=== PATIENT | female | born 1960 | race African-American/Black ===

== ENCOUNTER 2018-06-02 08:22 | Emergency (ER) | payer MEDICARE, OTHER ==
[2018-06-02 09:46] LABS: #Basophils 0.1 thou/uL (0.0-0.2); #Eosinphils 0.1 thou/uL (0.0-0.7); #Lymphocytes 1.6 thou/uL (1.20-3.40); #Monocytes 0.3 thou/uL (0.11-0.59); #Neutrophils 3.4 thou/uL (1.40-6.50); %Basophils 1.9 % (0.0-1.0); %Eosinophils 1.6 % (0.0-10.0); %Lymphocytes 29.7 % (21.0-51.0); %Monocytes 5.1 % (0.0-10.0); %Neutrophils 61.6 % (42.0-75.0); Hemoglobin 14.2 g/dL (12.0-16.0); Mean Corpuscular Hemoglobin 33.3 pg (27.0-31.0); Mean Platelet Volume 7.3 fL (7.4-10.4); Platelet Count 260 thou/uL (130-400); RBC Distribution Width 12.4 % (11.5-14.5); Red Blood Cell (RBC) Count 4.27 mill/uL (4.20-5.40); White Blood Cell (WBC) Count 5.5 thou/uL (4.8-10.8)
[2018-06-02 10:02] LABS: Anion Gap 12 mmol/L (10-20); BUN (Urea Nitrogen) 8 mg/dL (9.8-20.1); Calc. Creatinine Clearance 0 mL/min (70-130); Carbon Dioxide 25 mmol/L (22-29); Chloride 103 mmol/L (98-107); Estimated GFR-MDRD 86; Glucose 109 mg/dL (70-105); Potassium 3.1 mmol/L (3.5-5.1); Sodium 137 mmol/L (136-145)
[2018-06-02 10:08] LABS: CKMB 0.6 ng/mL (0-6.6); Troponin I Less than 0.010 ng/mL (< 0.028)
--- NOTE | 2018-06-02 10:23 | RAD ---
CHEST 1 VIEW: Date: 06/02/18 HISTORY: Chest pain. COMPARISON: Chest radiograph from 2009. FINDINGS: Lungs are clear. No pneumothorax or effusion. Cardiac silhouette and mediastinal contours within norm al limits. IMPRESSION: No acute intrathoracic abnormality. POS: KIMBERLEYH
[2018-06-02 11:11] LABS: Troponin I Less than 0.010 ng/mL (< 0.028)
== END 2018-06-02 11:40 | disposition home or self-care (01) ==
LOC: ERS 08:22
DX: R07.9 Chest pain, unspecified (principal); E11.9 Type 2 diabetes mellitus without complications; I10 Essential (primary) hypertension; F17.210 Nicotine dependence, cigarettes, uncomplicated; Z79.899 Other long term (current) drug therapy
CPT/HCPCS: 36415; 71045; 80048; 82553; 84484; 85025; 93005; 99406

== ENCOUNTER 2019-01-12 09:01 | Emergency (ER) | payer MEDICARE, MEDICAID ==
[2019-01-12] MEDS ORDERED: Acetaminophen 325 MG TAB ONE (09:31)
--- NOTE | 2019-01-12 09:34 | RAD ---
EXAM: XR Ankle Lt 3 View STANDARD PROVIDED CLINICAL HISTORY: Pain FINDINGS: There is no evidence for fracture or other acute osseous abnormality. Alignment appears anatomic. Barbara nt spaces appear preserved. IMPRESSION: No evidence for an acute osseous abnormality. If there is persistent clinical concern, conservative m anagement and follow-up imaging advised.
--- NOTE | 2019-01-12 09:34 | RAD ---
EXAM: XR Foot Lt 3 View STANDARD PROVIDED CLINICAL HISTORY: Pain FINDINGS: There is no evidence for fracture or other acute osseous abnormality. Alignment appears anatomic. Barbara nt spaces appear preserved. Posterior and plantar calcaneal enthesophyte formation. IMPRESSION: No evidence for an acute osseous abnormality. If there is persistent clinical concern, conservative m anagement and follow-up imaging advised.
== END 2019-01-12 10:12 | disposition home or self-care (01) ==
LOC: ERS 09:01
DX: M25.572 Pain in left ankle and joints of left foot (principal); I10 Essential (primary) hypertension; F20.9 Schizophrenia, unspecified; F17.210 Nicotine dependence, cigarettes, uncomplicated; Z79.899 Other long term (current) drug therapy

== ENCOUNTER 2019-02-12 19:05 | Emergency (ER) | payer MEDICARE, MEDICAID | END 2019-02-12 20:19 | disposition left against medical advice (07) | LOC: ERS 19:05 | DX: Z53.21 Procedure and treatment not carried out due to patient leaving prior to being seen by health care provider (principal) ==

== ENCOUNTER 2019-02-17 06:15 | Inpatient (IN) | payer MEDICARE, MEDICAID ==
[2019-02-17] MEDS ORDERED: EPINEPHrine 1 MG/ML AMP ONE ×3 (06:34→10:17)
[2019-02-17] MEDS ORDERED: Lidocaine 1% w/Epinephrine 1:100K 20 ML VIAL ONE (06:39)
[2019-02-17] MEDS ORDERED: Norepinephrine 8 MG/250 ML IVPB SCH (06:45)
[2019-02-17] MEDS ORDERED: Norepinephrine 8 MG/0.9% NS 250 ML IVPB SCH (06:45)
[2019-02-17] MEDS ORDERED: Piperacillin/Tazobactam 3.375 GM VIAL ONE ×2 (07:51→08:19)
[2019-02-17] MEDS ORDERED: Atropine Sulfate 1 mg/10 ml Syringe ONE (07:59)
[2019-02-17 08:19] LABS: INR-International Normal Ratio 1.3; Prothrombin Time 16.1 SEC (12.0-14.7)
[2019-02-17] MEDS ORDERED: Calcium Chloride 1 GM/10 ML Abboject SYRINGE ONE (08:25)
[2019-02-17 08:28] LABS: D-Dimer Test 11.26 *mcg/mL (0.27-0.43)
[2019-02-17] MEDS ORDERED: Potassium Chloride 40 MEQ in Sodium Chloride 0.9% 250 ML 250 ML IVPB SCH (08:30)
[2019-02-17 08:33] LABS: #Basophils 0.1 thou/uL (0.0-0.2); #Eosinphils 0.1 thou/uL (0.0-0.7); #Lymphocytes 3.2 thou/uL (1.20-3.40); #Monocytes 0.4 thou/uL (0.11-0.59); %Basophils 0.5 % (0.0-1.0); %Eosinophils 0.5 % (0.0-10.0); %Lymphocytes 18.2 % (21.0-51.0); %Neutrophils 78.8 % (42.0-75.0); Hemoglobin 15.2 g/dL (12.0-16.0); Mean Corpuscular HGB CONC 32.7 g/dL (32.0-36.0); Mean Corpuscular Hemoglobin 31.4 pg (27.0-31.0); Mean Platelet Volume 8.3 fL (7.4-10.4); Platelet Count 261 thou/uL (130-400); RBC Distribution Width 12.5 % (11.5-14.5); Red Blood Cell (RBC) Count 4.86 mill/uL (4.20-5.40); White Blood Cell (WBC) Count 17.7 thou/uL (4.8-10.8)
[2019-02-17 08:34] LABS: ALT (SGPT) 7 U/L (8-55); AST (SGOT) 11 U/L (5-34); Albumin 2.6 g/dL (3.5-5.0); Alkaline Phosphatase 58 U/L (40-150); Anion Gap 12 mmol/L (10-20); BUN (Urea Nitrogen) 16 mg/dL (9.8-20.1); Bilirubin, Total 0.3 mg/dL (0.2-1.2); CK (CPK) 122 U/L (29-168); Calc. Creatinine Clearance 0 mL/min (70-130); Carbon Dioxide 21 mmol/L (22-29); Chloride 105 mmol/L (98-107); Estimated GFR-MDRD 56; Globulin 2.1 g/dL (2.4-3.5); Glucose 318 mg/dL (70-105); Magnesium 1.4 mg/dL (1.6-2.6); Protein, Total 4.7 g/dL (6.0-8.3); Sodium 135 mmol/L (136-145)
[2019-02-17 08:35] LABS: Acetaminophen Less than 6.0 mcg/mL (10.0-30.0); Alcohol Less than 10 mg/dL (Less than 10); Salicylate Less than 8.0 mg/dL (15.0-30.0)
[2019-02-17 08:41] LABS: Potassium 2.6 mmol/L (3.5-5.1)
[2019-02-17 08:52] LABS: Bacteria/HPF 4+ HPF (None Seen); Bilirubin Negative (Negative); Blood, Urine Negative (Negative); Clarity Clear (Clear); Glucose, Urine (Dipstick) Normal (Negative); Leukocyte Negative Leu/uL (Negative); Nitrite 2+ (Negative); Protein, Urine (Dipstick) Negative (Neg-Trace); RBC/HPF 0-3 HPF (0-3); Squamous Epithelial 0-3 HPF (0-3); Urobilinogen Normal mg/dL (Less than 2); WBC/HPF 0-3 HPF (0-3)
[2019-02-17 08:54] LABS: Amphetamine Not Detected (NotDetected); Barbiturates Screen Not Detected (NotDetected); Benzodiazepine Screen Not Detected (NotDetected); Cocaine Metabolite Screen Not Detected (NotDetected); Medtox Control Line Valid? VALID (VALID); Medtox Reader # READER 4; Methadone Not Detected (NotDetected); Methamphetamine Not Detected (NotDetected); Opiate Screen Not Detected (NotDetected); Oxycodone Screen Not Detected (NotDetected); Phencyclidine (PCP) Not Detected (NotDetected); THC/Cannabinoid Screen Not Detected (NotDetected); Tricyclic Screen Not Detected (NotDetected)
[2019-02-17] MEDS ORDERED: Heparin 25,000 units/D5W 500 ML ONE (08:56)
[2019-02-17] MEDS ORDERED: Heparin 1,000 UNITS/ML VIAL ONE ×2 (08:56)
[2019-02-17 08:57] LABS: CKMB 1.4 ng/mL (0-6.6)
[2019-02-17] MEDS ORDERED: Dexamethasone 10 MG/ML VIAL ONE (08:57)
[2019-02-17] MEDS ORDERED: Aspirin Chewable 81 MG TAB ONE (08:57)
[2019-02-17] MEDS ORDERED: Magnesium 2 GM/50 ML BAG (IN WATER) ONE (09:09)
--- NOTE | 2019-02-17 09:17 | RAD ---
PORTABLE CHEST 1 VIEW: Date: 02/17/19 Time: 0711 hours HISTORY: Central line placement. FINDINGS/IMPRESSION: Heart size is prominent. Aorta is tortuous. There is a right internal jugular central venous catheter with tip in the projection of the SVC. No focal areas of consolidation, pneumothoraces, lynn pulmon luke edema, or pleural effusions are seen. There are degenerative changes in the spine. POS: KIMBERLEY
--- NOTE | 2019-02-17 09:24 | CT ---
CTA Angio Chest W WO Con 02/17/2019 8:32 AM Indication: Elevated d-dimer, shortness of breath and chest pain Technique: Multiple CTA images were obtained of the thorax with IV contrast. 3D reformatted images were constructed from the raw data. Comparison: None Findings: Pulmonary arteries: No central or segmental pulmonary embolus is evident. Heart and Great Vessels: There is a right IJ central venous catheter. There are mild vascular struct ures involving thoracic aorta. Heart and great vessels otherwise are within normal limits. Lungs:The lungs are clear. Pleural space: Clear. Upper Abdomen: No acute abnormality. Osseous Structures: No acute osseous abnormality. Impression: No central or segmental pulmonary embolus.
[2019-02-17] MEDS ORDERED: EPINEPHrine 1 MG/10 ML Abboject SYRINGE ONE ×3 (09:32→11:56)
[2019-02-17 09:37] LABS: Lipase 24 U/L (8-78)
[2019-02-17] MEDS ORDERED: ISOVUE-370 76%-LOCM 1 ML ONE (12:00)
[2019-02-17 12:06] LABS: Troponin I 0.595 ng/mL (< 0.028)
--- NOTE | 2019-02-17 12:25 | CON ---
DATE OF CONSULTATION: HISTORY OF PRESENT ILLNESS: She is going to the ICU. I saw her in the ER. She is hypotensive, was given 2 L of IV fluids and started on epinephrine drip. On arrival, her blood pressure was 130 systolic, sats 90%, respirations 16. She was in no distress. Awake, alert, and responsive. She is a morbidly obese female, who normally sees physicians at the [place] and [place]. She was here 3 days ago with bumps on her hand and apparently left without being seen. It is unclear what transpired. I asked her why she left, she said she did not want to wait. Apparently, she had some hives . The patient smokes up to a pack a day. Denies any substance abuse. Today, she comes in because she is itching all over. Denies any cough, shortness of breath, chest pain, chills, or sweats. Chest x-ray and CT chest were done which were negative. She apparently was hypotensive in the ER, received 2 units of packed cells. PAST MEDICAL HISTORY: Pertinent for bipolar disorder, seizure disorder, hypertension. PREVIOUS SURGERIES: . She had a central line placed in today. SOCIAL HISTORY: Alcohol, none. Substance abuse, none. HOME MEDICATIONS: 1. 20 pravastatin. 2. Potassium 20. 3. Lisinopril 20. 4. Vimpat 50. 5. . 6. Cogentin 1 mg twice a day. 7. Amlodipine 2.5. ALLERGIES: NONE. REVIEW OF SYSTEMS: Ten-point negative. PHYSICAL EXAMINATION: GENERAL: As noted in the ER, she is absolutely in no distress, morbidly obese female. VITAL SIGNS: Blood pressure 130/80, epinephrine drip, pulse 80, sats 90%, respirations 18. CHEST: No wheezing or crackles. CARDIAC: Normal S1, S2. No gallops. ABDOMEN: No masses. LABORATORY DATA: So far, white count 17,000, H and H 15 and 46, platelet count is normal. Potassium 2.6, creatinine 1.2, slightly elevated from previous numbers. Renal function is normal. BNP is normal. Urine shows 4+ bacteria. Drug screen was negative. IMPRESSION: Presumed urosepsis, hypertension, morbid obesity, bipolar, schizophrenia, arthritis. Agree with broad-spectrum antibiotics as prescribed. Try and wean pressors. Continue broad-spectrum antibiotics. Pulmonary/Critical Care will follow while in the ICU. Consultation note, 70 minutes, 50% direct patient care. Job ID: [id number]
[2019-02-17] MEDS ORDERED: Ondansetron ODT 4 MG TAB SL PRN (12:43)
[2019-02-17] MEDS ORDERED: Ondansetron PF 4 MG/2 ML Vial IVP PRN (12:43)
[2019-02-17] MEDS ORDERED: Lactated Ringer's 1,000 ML IV SCH (12:45)
[2019-02-17] MEDS ORDERED: Dextrose 50% Abboject 50 ML SYRINGE SLOW IVP PRN (13:34)
[2019-02-17] MEDS ORDERED: Insulin Regular 300 UNITS/3 ML VIAL SC PRN (13:34)
[2019-02-17] MEDS ORDERED: Dextrose 5% in Water 1,000 ML IV PRN (13:34)
[2019-02-17] MEDS ORDERED: Bisacodyl 10 MG SUPP PR PRN (13:35)
[2019-02-17] MEDS ORDERED: Senokot S 8.6-50 MG TAB PO PRN (13:35)
[2019-02-17] MEDS ORDERED: Calcium Carbonate 500 MG ChewTAB PO PRN (13:35)
[2019-02-17] MEDS ORDERED: Atropine Sulfate 1 mg/1 ml Vial IVP PRN (13:40)
[2019-02-17] MEDS ORDERED: Nicotine 14 MG PATCH TD PRN (13:41)
[2019-02-17] MEDS ORDERED: Famotidine 20 MG TAB PO SCH (13:45)
[2019-02-17] MEDS ORDERED: Vancomycin HCl 1 GM in Premix Bag 1 BAG IVPB SCH (13:45)
[2019-02-17] MEDS ORDERED: Loratadine 10 MG TAB PO SCH (13:45)
[2019-02-17] MEDS ORDERED: Famotidine/PF 20 mg/2ml Vial SLOW IVP SCH ×2 (13:45→21:00)
[2019-02-17] MEDS: NS 0.9% w/ 20 MEQ KCL 1,000 ML/1,000 ML BAG IV SCH ×2 (13:50→20:00)
--- NOTE | 2019-02-17 13:54 | HP ---
CHIEF COMPLAINT: Shortness of breath. HISTORY OF PRESENT ILLNESS: The patient is a 58-year-old female with diabetes mellitus type 2, schizophrenia, followed by [facility], hypertension, and obesity, who was brought into the emergency room with shortness of breath. This morning when the patient woke up, she had generalized itching along with productive cough and shortness of breath. She felt normal when she slept last night. She has history of chronic bronchitis; however, denies any history of COPD. She continues to smoke up to 3 pack a day. When EMS arrived, she was in significant shortness of breath that improved with DuoNeb's and Solu-Medrol. She was lethargic as well. No chest pain, palpitations, insect bite, or focal neurologic deficit reported. She states that she received an intramuscular injection 2 days ago at [facility], which was new. She was very difficult to arouse on ER arrival. Her initial blood pressure was 63/46, pulse rate of 86, respirations of 20, temperature of 97.8, with O2 saturation 100% on room air. She was started on epinephrine after a central line. Due to elevated troponin, she was started on heparin drip. She also received aspirin, 10 mg Decadron, atropine 0.5 mg due to bradycardia as well as vancomycin and Zosyn. Later on, her blood pressure gradually improved. Her mentation is almost back to her baseline per family. Please note that above history was obtained from the patient. PAST MEDICAL HISTORY: 1. Hypertension. 2. Schizophrenia. 3. Chronic hepatitis B. 4. Diabetes mellitus type 2. 5. Morbid obesity. 6. Ongoing tobacco abuse. 7. Urinary incontinence. 8. Empty sella syndrome. 9. Seizure disorder. PAST SURGICAL HISTORY: . ALLERGIES: NO KNOWN DRUG ALLERGIES. CURRENT HOME MEDICATIONS: Family to bring all of her medications. She is unable to recall any of her home medications. SOCIAL HISTORY: The patient currently lives at home with her family. She is followed by [facility]. She smokes 2 to 3 packs cigarette a day. No drug use reported. FAMILY HISTORY: Negative for heart disease. ALLERGIES: NO KNOWN DRUG ALLERGIES. REVIEW OF SYSTEMS: All other review of systems are reviewed and were found negative. PHYSICAL EXAMINATION: VITAL SIGNS: As discussed above. GENERAL: A 58-year-old female in no apparent distress, on epinephrine drip. HEENT: Head, atraumatic and normocephalic. Sclerae anicteric. Moist mucous membrane. No oral lesion. NECK: Supple. No JVD. No carotid bruit. LUNGS: Clear to auscultation bilaterally. No wheezing, rales, or rhonchi. HEART: S1 and S2 present. Regular rate and rhythm. No rubs or gallops. ABDOMEN: Soft, nontender. Bowel sounds present. EXTREMITIES: No edema or calf tenderness. NEUROLOGIC: Grossly nonfocal. Power was 5/5 in all extremities. PSYCHIATRY: Alert, awake, and oriented x3. Normal affect. SKIN: Warm and dry. LYMPH NODES: No palpable lymph nodes in the neck. PERIPHERAL VASCULAR: Radial pulses palpable bilaterally. MUSCULOSKELETAL: No joint swelling or tenderness. LABORATORY FINDINGS: Lactic acid 2.9 with potassium 2.6, sodium 135, chloride 105, bicarb 21, BUN 16, creatinine 1.2, magnesium 1.4. Troponin 0.134. Repeat troponin was 0.595. TSH was 3.0. BNP 24.3. Urinalysis was negative for wbc, it showed 4+ bacteria. Urine drug screen was negative. IMAGING STUDIES: CT angiogram of the chest by my review was negative for pulmonary embolism. Chest x-ray by my review was negative for infiltrate. EKG by my review showed sinus rhythm with nonspecific ST-T wave changes, left axis deviation. QT interval was 464 milliseconds. IMPRESSION: 1. Toxic metabolic encephalopathy of unclear etiology. 2. Hypotension, requiring pressors of unclear etiology. Suspected allergic reaction. Rule out sepsis. 3. Elevated troponin, probably secondary to type 2 myocardial infarction from demand ischemia due to significant hypotension. 4. Hypokalemia. 5. Lactic acidosis secondary to significant hypotension. 6. Diabetes mellitus type 2. 7. History of hypertension. 8. Schizophrenia, followed by [facility]. 9. Urinary incontinence. 10. Degenerative joint disease. 11. Chronic bronchitis followed at [facility] (Dr. Khan). 12. Ongoing tobacco abuse. 13. Chronic hepatitis B. 14. Morbid obesity. 15. Elevated D-dimer with negative CT angiogram of the chest. 16. Mild acute kidney injury on chronic kidney disease stage 2. 17. Hypomagnesemia. PLAN: The patient will be monitored in the intensive care unit. We will consult Pulmonary, Dr. Beverly. We will continue pressors. Empiric antibiotics. We will repeat troponin. Lovenox for DVT prophylaxis. We will discontinue heparin drip. Replace electrolytes. Plan of care was discussed with the patient and the family in detail, they stated understanding. Job ID: [id number]
[2019-02-17] MEDS ORDERED: Magnesium Sulfate 2 GM in Sodium Chloride 0.9% 100 ML IVPB SCH (14:00)
[2019-02-17] MEDS ORDERED: Magnesium 2 GM/50 ML 2 GM in Premix Bag 1 BAG IVPB SCH (14:30)
[2019-02-17] MEDS ORDERED: diphenhydrAMINE 25 MG CAP PO SCH (15:00)
[2019-02-17 15:34] VITALS: BMI 47.8
[2019-02-17 16:24] LABS: Anion Gap 11 mmol/L (10-20); BUN (Urea Nitrogen) 17 mg/dL (9.8-20.1); Calc. Creatinine Clearance 116 mL/min (70-130); Calcium 8.4 mg/dL (7.8-10.44); Carbon Dioxide 19 mmol/L (22-29); Chloride 108 mmol/L (98-107); Estimated GFR-MDRD 67; Glucose 294 mg/dL (70-105); Potassium 3.1 mmol/L (3.5-5.1); Sodium 135 mmol/L (136-145)
[2019-02-17] MEDS: Insulin Regular 300 UNITS/3 ML VIAL SC PRN (16:37)
[2019-02-17] MEDS: Potassium Chloride 20 MEQ TAB PO SCH (16:38)
[2019-02-17 16:59] LABS: CKMB 9.6 ng/mL (0-6.6)
[2019-02-17] MEDS: Piperacillin/Tazobactam 3.375 GM in Sodium Chloride 0.9% 100 ML IVPB SCH (20:00)
[2019-02-17] MEDS: Famotidine 20 MG TAB PO SCH (20:01)
[2019-02-17] MEDS: Enoxaparin Sodium 40 MG/0.4 ML SYRINGE SC SCH (20:01)
[2019-02-17] MEDS: methylPREDNISolone Sod Succ 40 MG VIAL IVP SCH (21:46)
[2019-02-17] MEDS: Acetaminophen 325 MG TAB PO PRN (21:47)
[2019-02-17] MEDS: Vancomycin HCl 1.75 GM in Sodium Chloride 0.9% 500 ML IVPB SCH (21:47)
[2019-02-18] MEDS: Piperacillin/Tazobactam 3.375 GM in Sodium Chloride 0.9% 100 ML IVPB SCH ×3 (01:18→15:49)
[2019-02-18] MEDS: methylPREDNISolone Sod Succ 40 MG VIAL IVP SCH (05:05)
[2019-02-18] MEDS: NS 0.9% w/ 20 MEQ KCL 1,000 ML/1,000 ML BAG IV SCH ×4 (05:14→18:53)
[2019-02-18 05:48] LABS: #Lymphocytes 1.7 thou/uL (1.20-3.40); #Monocytes 0.5 thou/uL (0.11-0.59); #Neutrophils 17.6 thou/uL (1.40-6.50); %Basophils 0.1 % (0.0-1.0); %Lymphocytes 8.3 % (21.0-51.0); %Monocytes 2.8 % (0.0-10.0); %Neutrophils 88.8 % (42.0-75.0); Hemoglobin 10.9 g/dL (12.0-16.0); Mean Corpuscular HGB CONC 33.9 g/dL (32.0-36.0); Mean Corpuscular Hemoglobin 32.7 pg (27.0-31.0); Mean Corpuscular Volume 96.6 fL (78.0-98.0); Mean Platelet Volume 7.5 fL (7.4-10.4); Platelet Count 204 thou/uL (130-400); RBC Distribution Width 12.2 % (11.5-14.5); Red Blood Cell (RBC) Count 3.34 mill/uL (4.20-5.40); White Blood Cell (WBC) Count 19.8 thou/uL (4.8-10.8)
[2019-02-18 06:09] LABS: Phosphorus 2.7 mg/dL (2.3-4.7)
[2019-02-18 06:10] LABS: ALT (SGPT) 8 U/L (8-55); AST (SGOT) 17 U/L (5-34); Albumin 2.9 g/dL (3.5-5.0); Alkaline Phosphatase 54 U/L (40-150); Anion Gap 8 mmol/L (10-20); BUN (Urea Nitrogen) 15 mg/dL (9.8-20.1); Bilirubin, Total 0.2 mg/dL (0.2-1.2); Calc. Creatinine Clearance 141 mL/min (70-130); Calcium 8.3 mg/dL (7.8-10.44); Carbon Dioxide 22 mmol/L (22-29); Chloride 112 mmol/L (98-107); Estimated GFR-MDRD 84; Globulin 1.9 g/dL (2.4-3.5); Glucose 142 mg/dL (70-105); Potassium 3.7 mmol/L (3.5-5.1); Protein, Total 4.8 g/dL (6.0-8.3); Sodium 138 mmol/L (136-145)
[2019-02-18 06:14] LABS: Critical Call Chem Troponin I RESULT DECREASING
[2019-02-18 06:33] LABS: CKMB 6.9 ng/mL (0-6.6); Critical Call CKMB RESULT DECREASING
[2019-02-18] MEDS: Acetaminophen 325 MG TAB PO PRN (06:52)
[2019-02-18] MEDS: Aspirin 325 mg Enteric Coated Tablet PO SCH (07:59)
[2019-02-18] MEDS: Saccharomyces boulardii 250 MG CAP PO SCH (07:59)
[2019-02-18] MEDS: Famotidine 20 MG TAB PO SCH ×2 (07:59→20:04)
[2019-02-18] MEDS: Loratadine 10 MG TAB PO SCH (07:59)
[2019-02-18] MEDS: Potassium Chloride 20 MEQ TAB PO SCH (08:00)
--- NOTE | 2019-02-18 08:10 | PRG ---
DATE OF SERVICE: 02/18/2019 SUBJECTIVE: Josie Salazar this morning is awake, alert, and responsive in the ICU. No longer hypotensive. She wants to go home. OBJECTIVE: VITAL SIGNS: Blood pressure 136/77, temperature 98, pulse 70, and respirations 16. CHEST: Decreased breath sounds. No wheezing. CARDIAC: Normal S1 and S2. No gallops. ABDOMEN: No masses. LABORATORY DATA: Lytes are normal. White count 19,000. Troponin is borderline elevated. Cultures so far negative. ASSESSMENT: 1. Hypotension, probably urosepsis. 2. Morbid obesity. 3. Diabetes. PLAN: I would discontinue and escalate antibiotics, switch over to oral prednisone. PT , supportive care. Home in the next 24 to 48 hours. Job ID: [id number]
[2019-02-18] MEDS: Vancomycin HCl 1.75 GM in Sodium Chloride 0.9% 500 ML IVPB SCH (10:30)
[2019-02-18 11:12] VITALS: TEMP 98.8
[2019-02-18] MEDS: Insulin Regular 300 UNITS/3 ML VIAL SC PRN (11:18)
--- NOTE | 2019-02-18 16:10 | CON ---
DATE OF CONSULTATION: HISTORY OF PRESENT ILLNESS: Ms. Salazar is a 58-year-old black female with history of hypertension, diabetes, schizophrenia, and obesity, who was admitted with shortness of breath and hypotension. She also complained of generalized itching. Initial blood pressure was 63/46 with a heart rate of 86. She was given intravenous fluids, placed on epinephrine drip which has since been weaned and discontinued. She was bradycardic, was given atropine 0.5 mg IV and was started on broad- spectrum antibiotics. At the present time, her blood pressure is improved, she is off epinephrine and is sitting in a chair, alert, and oriented. The exact etiology of her hypotension is unclear at this time. PAST MEDICAL HISTORY: Hypertension, diabetes, schizophrenia, morbid obesity, empty sella syndrome, seizure disorder, and chronic hepatitis B. MEDICATIONS: She apparently received unknown injection at [facility] recently. 1. Aripiprazole 5 mg daily. 2. Cogentin 2 mg b.i.d. 3. Benztropine 2 mg b.i.d. 4. Diclofenac 75 mg b.i.d. 5. Motrin p.r.n. 6. Lisinopril 12.5 mg b.i.d. 7. Naproxen 500 mg b.i.d. 8. Actos 30 daily. 9. Pravastatin 20 at bedtime. 10. Propranolol 20 t.i.d. 11. Topiramate 50 b.i.d. 12. Trazodone 50 at bedtime p.r.n. ALLERGIES: NONE. PAST SURGICAL HISTORY: . SOCIAL HISTORY: She currently smokes 3 packs per day. She does not drink alcohol and denies any illicit drug use. FAMILY HISTORY: Mother may have had myocardial infarction. REVIEW OF SYSTEMS: A 12-point review of systems unremarkable. PHYSICAL EXAMINATION: VITAL SIGNS: Blood pressure 131/68 and pulse of 77, sinus rhythm on the monitor. HEENT: PERRL. NECK: Supple. CHEST: Clear. CARDIAC: S1 and S2 normal without any S3, S4, or murmurs. ABDOMEN: Obese. Normal bowel sounds. No tenderness. EXTREMITIES: Revealed no clubbing, cyanosis, or edema. NEUROLOGIC: Grossly intact. SKIN: Warm and dry. LABORATORY DATA: EKG revealed normal sinus rhythm with nonspecific T-wave change. Hemoglobin 10.9, hematocrit 32.3, white count 19,800, platelets 204,000. D- dimer 11.26. INR 1.3. Sodium 138, potassium 3.7, chloride 112, carbon dioxide 22, BUN 15, creatinine 0.84. Troponin I is up to 1.206, CK-MB 9.6, total CK 122. Urinalysis reveals 2+ nitrite, 0 to 3 wbc's, 4+ bacteria. Urine drug screen is unremarkable. Plasma alcohol less than 10. Blood and urine cultures are negative at 24 hours. Echocardiogram revealed ejection fraction of 60% to 65% with evidence for diastolic dysfunction, mild left atrial enlargement, moderate mitral regurgitation, and mild tricuspid regurgitation. IMPRESSION: 1. [id number] myocardial infarction, type 2, probably related to hypotension. As of note that she also underwent CT angiogram and had no evidence of pulmonary emboli. No mention is made of any coronary artery calcifications. 2. Hypotension of uncertain etiology, questionable allergic reaction to the injection she received in [facility]. 3. Hypertension. 4. Hyperlipidemia. 5. Diabetes. 6. Heavy smoker. 7. Schizophrenia. 8. Hepatitis B. 9. Morbid obesity. 10. Empty sella syndrome. PLAN: At the present time, she continues on empiric antibiotics and her pressure has stabilize off epinephrine. With multiple cardiac risk factors, but no significant chest discomfort, she will undergo Edu[facility] Cardiolite testing. Job ID: [id number] [facility]
--- NOTE | 2019-02-18 16:49 | CON ---
DATE OF CONSULTATION: 02/18/2019 REASON FOR CONSULTATION: Leukocytosis and hypotension. HISTORY OF PRESENT ILLNESS: A 58-year-old who had been admitted in 2016 with a history of type 2 diabetes, schizophrenia/bipolar disorder, hyponatremia and hypokalemia with seizure-like activity. She was seen by Dr. Dumont and had a brain MRI, which demonstrated normal findings except for partially empty sella. She was discharged on benztropine, ibuprofen, pioglitazone, and pravastatin. She has not been in the hospital since and now was brought in because of shortness of breath and itching with some coughing spells. She smokes daily up to 3 packs per day and does not drink alcoholic beverages. No cocaine or methamphetamine use. She was brought to the emergency room. She was found to be tachypneic and was given Solu-Medrol and DuoNebs. She did not have any chest pain. Apparently, she had some intramuscular injection at [facility] for control of her psychosis 2 days before admission. On arrival to the emergency room, she had a little bit of difficulty to arouse. Her initial BP was 60/40, heart rate 86, temperature 97.8, O2 saturation 100%. She was given a variety of interventions including epinephrine, vancomycin, Zosyn, and heparin. The troponin was a little bit elevated. CT angiogram did not show any abnormalities. She is now in the ICU. She is awake and denies headaches. No more sore throat, odynophagia, or dysphagia. No chest pain. No dyspnea. No abdominal pain or diarrhea. No genitourinary symptoms. No joint symptoms. PAST MEDICAL HISTORY: Hypertension; schizophrenia; chronic hep B; type 2 diabetes; obesity; ongoing smoking, heavy; empty sella syndrome; seizure disorder. ALLERGIES: NONE. SOCIAL HISTORY: Smokes daily. Lives with family in the area. CURRENT MEDICATIONS: 1. Tylenol. 2. Ecotrin. 3. Atropine. 4. Dulcolax. 5. Tums. 6. Dextrose. 7. Enoxaparin. 8. Pepcid. 9. Glucagon. 10. Insulin. 11. Claritin. 12. Nicoderm. 13. Zosyn. 14. Vancomycin. PHYSICAL EXAMINATION: VITAL SIGNS: T-max 98.8, blood pressure 104/64, pulse 66, respirations 17, O2 saturation 98%. GENERAL: Appears in no distress, knows her location and name and date, follows commands. SKIN: No areas of skin breakdown. Peripheral IV access, she is urinating with an indwelling Jacobsen catheter. HEENT: Ocular movements are conjugate. Sclerae are white. Pupils are equal. Oral cavity is normal. Quite a few missing teeth. NECK: Supple. No jugular vein distention. LUNGS: Symmetric air entry. Shoulders are okay. Sternoclavicular joint is fine. HEART: S1 and S2. Regular rate. No S3 or S4. ABDOMEN: Soft, not distended or tender. No ascites. No bladder distention. EXTREMITIES: No joint inflammatory activity. Moves extremities on command. Plantar response are flexor. NEUROLOGIC: She is awake, knows her name. She knows where she is. Speech is normal. LABORATORY DATA: White cell count 19.8, hemoglobin 10.9, platelets 204 with 88% neutrophils. Creatinine 0.84. Liver profile normal. Troponin 0.674. Albumin 2.9. Lipase 24. Urinalysis was normal. Toxicology was negative. ASSESSMENT: Obesity, chronic smoking, schizoaffective disorder, recent initiation of a new antipsychotic medication given by the intramuscular route, constipation , sensation of weakness, neutrophilia, some respiratory symptoms, and some element of bronchitis. DISCUSSION: Neutrophilia now appears to be more of residual from the acute event plus the methylprednisolone. Another concern would be neuroleptic associated inflammatory process or syndrome. but at this moment she does not meet criteria for NMS. She also had elevated troponin and is in the process of being worked up for that. In view of the history of hepatitis B, we will check her HIV, hepatitis C and hepatitis B serologies to see if she would need treatment. We will also submit hepatitis B DNA PCR. Discontinue antimicrobial therapy for now. Job ID: [id number] [facility]
[2019-02-18 17:31] LABS: HBSAB Concentration 0.44 mIU/mL; HIV (1/2) Antibody/Antigen Non-Reactive (NonReactive); HIV 1/2 INDEX 0.24 S/CO (<1.00); Hep B Surf AB Non-Reactive (NonReactive); Hep C IgG Ab Non-Reactive (NonReactive); Hep C Index 0.05 S/CO (0-0.79)
--- NOTE | 2019-02-18 18:20 | PDOC.HOSPP ---
- Subjective Subjective: Patient seen and examined for Hypotension requiring pressors. Off pressors. No CP/SOB/Fever/Itching. No new complaints. No overnight events - Objective Vital Signs & Weight: Vital Signs (12 hours) Temp Pulse Ox 02/18/19 16:00 98.8 F 02/18/19 15:40 98 02/18/19 11:00 98.8 F 02/18/19 07:35 100 02/18/19 07:18 98.0 F Weight Weight 269 lb 2.951 oz Most Recent Monitor Data Heart Rate from ECG 70 NIBP 117/67 NIBP BP-Mean 83 Respiration from ECG 19 SpO2 100 I&O: 02/17/19 02/18/19 02/19/19 06:59 06:59 06:59 Intake Total 3952 1950 Output Total 2800 1790 Balance 1152 160 Result Diagrams: 02/19/19 05:25 02/19/19 03:30 Additional Labs: Accuchecks 02/18/19 02/18/19 02/17/19 16:36 11:18 19:50 POC Glucose 93 166 H 182 H Radiology Reviewed by me: Yes (CTA - no PE) EKG Reviewed by me: Yes (Tele SR) ROS - Review of Systems All systems: All other ROS were reviewed and found negative. Constitutional: denies: fever, chills, sweats, weakness, malaise, other Respiratory: denies: cough, dry, shortness of breath, hemoptysis, SOB with excertion, pleuritic pain, sputum, wheezing, other Cardiovascular: denies: chest pain, palpitations, orthopnea, paroxysmal noc. dyspnea, edema, light headedness, other - Medication Medications: Active Medications Generic Name Dose Route Start Last Admin Trade Name Freq PRN Reason Stop Dose Admin Acetaminophen 650 mg 02/17/19 13:35 02/18/19 06:52 Tylenol PO 650 mg Q4H PRN Administration Headache/Fever/Mild Pain (1-3) Aspirin 325 mg 02/18/19 09:00 02/18/19 07:59 Ecotrin PO 325 mg DAILY DAWIT Administration Enoxaparin Sodium 40 mg 02/17/19 21:00 02/17/19 20:01 Lovenox SC 40 mg 2100 DAWIT Administration Famotidine 20 mg 02/17/19 21:00 02/18/19 07:59 Pepcid PO 20 mg BID DAWIT Administration Potassium Chloride/Sodium Chloride 1,000 ml in 1,000 mls @ 150 mls/hr 13:45 02/18/19 15:51 Ns 0.9% W/ 20 Meq Kcl IV Not Given .Q6H40M DAWIT Insulin Human Regular 0 units 02/17/19 13:34 02/18/19 11:18 Humulin R SC 2 unit .MODERATE SLIDING SC PRN Administration Moderate Correctional Scale Loratadine 10 mg 02/18/19 09:00 02/18/19 07:59 Claritin PO 10 mg DAILY DAWIT Administration Saccharomyces Boulardii 250 mg 02/18/19 09:00 02/18/19 07:59 Florastor PO 250 mg DAILY DAWIT Administration - Exam NAD ENT: normocephalic atraumatic Neck: supple, no JVD Heart: RRR, no murmur, no gallops, no rubs Respiratory: CTAB, no wheezes, no rales, no ronchi Gastrointestinal: soft, non-tender, non-distended, normal bowel sounds Extremities: no cyanosis, no clubbing, no edema Skin: normal turgor, no lesions, no rashes Neurological: CN's grossly intact, no weakness, no focal deficits, no new deficit Musculoskeletal: normal tone, normal strength Psychiatric: normal affect, A&O x 3 Hosp A/P - Plan IMPRESSION: 1. Toxic metabolic encephalopathy of unclear etiology. 2. Hypotension, requiring pressors of unclear etiology. Suspected allergic reaction. ?sepsis. 3. Elevated troponin, probably secondary to type 2 myocardial infarction from demand ischemia due to significant hypotension. 4. Hypokalemia/Hypomagnesemia. Replaced 5. Lactic acidosis secondary to significant hypotension. 6. Diabetes mellitus type 2. 7. History of hypertension. 8. Schizophrenia, followed by [facility]. 9. Urinary incontinence. 10. Degenerative joint disease. 11. Chronic bronchitis followed at [facility] (Dr. Khan). 12. Ongoing tobacco abuse. 13. Chronic hepatitis B. 14. Morbid obesity. 15. Elevated D-dimer with negative CT angiogram of the chest. 16. Mild acute kidney injury on chronic kidney disease stage 2. PLAN: Cont IV Vancomycin/Zosyn Will consult ID Reduce IVF Lexiscan stress test ordered AM labs Transfer to Tele Cont sliding scale Cont other meds as below
[2019-02-18 18:30] LABS: Hep B Surf Ag Reflx Confirmation S/CO (NonReactive)
[2019-02-18 18:33] LABS: HBSAg Index 5256.31 S/CO (0-0.99)
[2019-02-18] MEDS: Enoxaparin Sodium 40 MG/0.4 ML SYRINGE SC SCH (20:04)
[2019-02-18 21:36] LABS: Vancomycin, Trough 24.3 ug/mL
[2019-02-19 05:37] LABS: #Basophils 0.1 thou/uL (0.0-0.2); #Lymphocytes 4.1 thou/uL (1.20-3.40); #Monocytes 0.6 thou/uL (0.11-0.59); #Neutrophils 9.5 thou/uL (1.40-6.50); %Basophils 0.7 % (0.0-1.0); %Eosinophils 0.1 % (0.0-10.0); %Lymphocytes 28.7 % (21.0-51.0); %Monocytes 4.3 % (0.0-10.0); %Neutrophils 66.2 % (42.0-75.0); Hemoglobin 9.9 g/dL (12.0-16.0); Mean Corpuscular HGB CONC 32.9 g/dL (32.0-36.0); Mean Corpuscular Hemoglobin 32.3 pg (27.0-31.0); Mean Corpuscular Volume 98.1 fL (78.0-98.0); Mean Platelet Volume 7.2 fL (7.4-10.4); Platelet Count 192 thou/uL (130-400); RBC Distribution Width 12.7 % (11.5-14.5); Red Blood Cell (RBC) Count 3.05 mill/uL (4.20-5.40); White Blood Cell (WBC) Count 14.3 thou/uL (4.8-10.8)
[2019-02-19 05:59] LABS: ALT (SGPT) 8 U/L (8-55); AST (SGOT) 15 U/L (5-34); Alkaline Phosphatase 46 U/L (40-150); Anion Gap 8 mmol/L (10-20); BUN (Urea Nitrogen) 13 mg/dL (9.8-20.1); Bilirubin, Total 0.2 mg/dL (0.2-1.2); Calc. Creatinine Clearance 154 mL/min (70-130); Calcium 8.6 mg/dL (7.8-10.44); Carbon Dioxide 23 mmol/L (22-29); Chloride 116 mmol/L (98-107); Estimated GFR-MDRD Greater than 90; Globulin 2.1 g/dL (2.4-3.5); Glucose 91 mg/dL (70-105); Magnesium 1.8 mg/dL (1.6-2.6); Potassium 3.8 mmol/L (3.5-5.1); Protein, Total 5.1 g/dL (6.0-8.3); Sodium 143 mmol/L (136-145)
[2019-02-19] MEDS: NS 0.9% w/ 20 MEQ KCL 1,000 ML/1,000 ML BAG IV SCH (06:29)
--- NOTE | 2019-02-19 08:20 | PRG ---
DATE OF SERVICE: 02/19/2019 SUBJECTIVE: Josie Salazar is a 58-year-old female. She says she wants to go home. No respiratory distress. Cardiology was consulted. OBJECTIVE: VITAL SIGNS: Blood pressure 135/79, temperature is 98, pulse 80, respiratory rate 18. CHEST: Decreased breath sounds. No wheezing. CARDIAC: Normal S1, S2. No gallops. ABDOMEN: No masses. LABORATORY DATA: White count 14,000, H and H 9 and 29, platelet count normal. Lytes are normal. IMPRESSION: hypotyensision resolved,, urosepsis, culture negative, morbid obesity, diabetes, bipolar schizophrenic. PLAN: Continue supportive care. Cardiology apparently has planned to do a stress test. Nothing additional to do at this stage. Continue home medication. Job ID: [id number] MTDD
[2019-02-19] MEDS ORDERED: NS 0.9% w/ 20 MEQ KCL 1,000 ML/1,000 ML BAG IV SCH (09:47)
[2019-02-19] MEDS: Famotidine 20 MG TAB PO SCH (10:19)
[2019-02-19] MEDS: Saccharomyces boulardii 250 MG CAP PO SCH (10:19)
[2019-02-19] MEDS: Aspirin 325 mg Enteric Coated Tablet PO SCH (10:19)
[2019-02-19] MEDS: Loratadine 10 MG TAB PO SCH (10:24)
--- NOTE | 2019-02-19 10:42 | NM ---
CARDIAC SPECT: HISTORY: A 58-year-old black female with chest pain, COPD, hypertension, and diabetes. Smoker. TECHNIQUE: A myocardial perfusion scan was performed using the single isotope 2 day protocol with 30 millicuries technetium 99m sestamibi injected intravenously for stress and rest images. Pharmacologic stress wi Lexiscan was monitored and interpreted by Dr. Abdi. FINDINGS: Homogeneous tracer distribution is seen in the myocardial segments on stress and rest images without fixed or reversible defects. GATED SPECT LVEF: 74% WALL MOTION EXAM: Normal. IMPRESSION: Normal myocardial perfusion scan. POS: OFF
--- NOTE | 2019-02-19 14:18 | PQF ---
DATE: 02-19-19 ATTN: DR. LUDA RODRIGUEZ Please exercise your independent, professional judgment in responding to the clarification form. Clinical indicators are provided on the bottom of this form for your review Please check appropriate box(s) to clarify if the following diagnosis has been ruled in or ruled out: SEPSIS [ ] Ruled in diagnosis [ ] Continue to treat [ ] Resolved [x ] Ruled out diagnosis [ ] Cannot rule out diagnosis [ ] Other diagnosis [ ] Unable to determine In addition, please specify: Present on Admission (POA): [ ] Yes [ ] No [ x ] Unable to determine For continuity of documentation, please document condition throughout progress notes and discharge summary. Thank You. CLINICAL INDICATORS - SIGNS / SYMPTOMS / LABS H&P: TOXIC METABOLIC ENCEPHALOPATHY, HYPOTENSION, REQUIRING PRESSORS OF UNCLEAR ETIOLOGY, SUSPECTED ALLERGIC REACTION. RULE OUT SEPSIS. CONSULT NOTE DR. ROBLES 02-18-19: PRESUMED UROSEPSIS PN LIZY RODRIGUEZ 02-19-19: TOXIC METABOLIC ENCEPHALOPATHY, HYPOTENSION, REQUIRING PRESSORS OF UNCLEAR ETIOLOGY. SUSPECT ALLERGIC REACTION. ? SEPSIS. RISK FACTORS: PN LIZY RODRIGUEZ 02-19-19: TOXIC METABOLIC ENCEPHALOPATHY, HYPOTENSION, REQUIRING PRESSORS OF UNCLEAR ETIOLOGY. SUSPECT ALLERGIC REACTION. ? SEPSIS. H&P: HX SMOKING, SOB, DM2, HTN, OBESITY, LETHARGIC, SEIZURE TREATMENTS: ER: LEVOPHED, VANCOMYCIN, DECADRON INJ, ZOSYN, EPINEPHRINE, IVF (This form is maintained as a part of the permanent medical record) 2014 [employer] All Rights Reserved JUSTINA [email or web address] Office: [phone] JESUS
[2019-02-19] MEDS ORDERED: Regadenoson 0.4 MG/5 ML SYRINGE ONE (15:55)
--- NOTE | 2019-02-20 10:48 | DIS ---
DATE OF ADMISSION: 02/17/2019 DATE OF DISCHARGE: 02/19/2019 DISCHARGE DISPOSITION: Home. FOLLOWUP: 1. Follow up with primary care physician at [facility] in 1 week. 2. Follow up with Infectious Disease, Dr. Sumner in 1 to 2 weeks. The patient will follow up with Dr. Sumner for chronic hepatitis B. 3. Follow up with Dr. Ramírez in 3 to 4 weeks. ALLERGIES: NO KNOWN DRUG ALLERGIES. THE PATIENT WAS SEEN AND EXAMINED ON THE DAY OF DISCHARGE. DENIES ANY NEW COMPLAINTS. NO CHEST PAIN, SHORTNESS OF BREATH, OR PALPITATIONS REPORTED. DISCHARGE MEDICATIONS: 1. Aspirin 81 mg daily. 2. Trazodone as needed. 3. Topamax 50 mg b.i.d. 4. Propranolol 20 mg three times daily, to be held if systolic blood pressure is below 120. 5. Pravastatin 20 mg at bedtime. 6. Pioglitazone 30 mg daily. 7. Benztropine 2 mg b.i.d. 8. Abilify 5 mg daily. 9. Tylenol as needed. INPATIENT CONSULTANTS: 1. Cardiology, Dr. Ramírez. 2. Infectious Disease, Dr. Sumner. 3. Critical Care, Dr. Beverly. BRIEF HOSPITAL COURSE: The patient is a 58-year-old female with diabetes mellitus type 2 and schizophrenia, followed by [facility] with recent change in medications by [facility], presented to the hospital with shortness of breath. Two days ago, the patient received an intramuscular injection for schizophrenia. She presented to the emergency room with altered mentation along with blood pressure of 63/46. She was started on epinephrine drip. Due to bradycardia, she also received atropine. She was started on broad-spectrum antibiotics along with steroids in the emergency room. The patient was monitored in the intensive care unit. Her blood culture and urine culture remained negative. She was found to have elevated troponin with a maximum troponin of 1.2. The patient was seen by multiple consultants as discussed above. A Cardiolite stress test was performed that was negative for reversible ischemia. Ejection fraction was 74% without wall motion abnormality. Antibiotics were discontinued per Infectious Disease's recommendation. The exact etiology for hypotension is unclear at this time. Her blood pressure has been stable over the last 36 to 48 hours. She was advised to monitor blood pressure on a daily basis and to maintain a log. FINAL DIAGNOSES: 1. Toxic metabolic encephalopathy, probably secondary to hypotension. 2. Hypotension of unclear etiology, sepsis ruled out, probably allergic reaction. 3. Elevated troponin secondary to type 2 myocardial infarction. Stress test was negative. 4. Hypokalemia, replaced. 5. Hypomagnesemia, replaced. 6. Lactic acidosis secondary to significant hypotension. The lactic acid maximum was 5.0. Resolved. 7. Diabetes mellitus, type 2. 8. Hypertension. 9. Schizophrenia, followed by [facility]. 10. Urinary incontinence. 11. Degenerative joint disease. 12. Chronic bronchitis, followed by Dr. Khan at [facility]. 13. Ongoing tobacco abuse. 14. Chronic hepatitis B. 15. Morbid obesity with a BMI of 48.3. 16. Elevated D-dimer. CT angiogram of the chest was negative for pulmonary embolism. 17. Mild acute kidney injury. Maximum creatinine was 1.2 on admission, at discharge it was 0.7. 18. chronic diastolic heart failure. 19. Moderate mitral regurgitation. 20. Mild tricuspid regurgitation. Total time coordinating the discharge of this patient was 36 minutes. DIAGNOSTIC STUDIES: Echocardiogram showed left ventricular ejection fraction 60% to 65% with 1 of 3 diastolic dysfunction and moderate mitral regurgitation, mild tricuspid regurgitation. SIGNIFICANT LABORATORY DATA: Potassium 2.6, magnesium 1.4, lactic acid 5.0, creatinine 1.2. Cortisol level 21. TSH 3.0. Urine culture and blood culture, negative. Urine drug screen negative. Hepatitis B surface antigen was positive. Confirmatory test is pending at this time. WBC on admission was 17.7. Plan of care was discussed with the patient in detail. She stated understanding. Job ID: [id number]
[2019-02-20 15:10] LABS: Hep B Surface AG-Rflx Sendout Confirm. indicated (Negative)
== END 2019-02-19 16:30 | disposition home or self-care (01) | DRG 280 ==
LOC: ERS 06:15 → CCU 10:16
PROVIDERS: ADMIT Internal Medicine; ATTEND Internal Medicine
DX: I95.9 Hypotension, unspecified (principal); G92 Toxic encephalopathy; I21.A1 Myocardial infarction type 2; Z68.42 Body mass index [BMI] 45.0-49.9, adult; E87.2 Acidosis; N17.9 Acute kidney failure, unspecified; F20.9 Schizophrenia, unspecified; E66.01 Morbid (severe) obesity due to excess calories; B18.2 Chronic viral hepatitis C; F17.210 Nicotine dependence, cigarettes, uncomplicated; R32 Unspecified urinary incontinence; E23.6 Other disorders of pituitary gland; G40.909 Epilepsy, unspecified, not intractable, without status epilepticus; N18.2 Chronic kidney disease, stage 2 (mild); E83.42 Hypomagnesemia; I12.9 Hypertensive chronic kidney disease with stage 1 through stage 4 chronic kidney disease, or unspecified chronic kidney disease; E11.22 Type 2 diabetes mellitus with diabetic chronic kidney disease; E87.6 Hypokalemia; K59.00 Constipation, unspecified; J42 Unspecified chronic bronchitis; Z79.899 Other long term (current) drug therapy
CPT/HCPCS: 36415; 36416; 36556; 51702; 71045; 71275; 78452; 80053; 80202; 80306; 80307; 81003; 81015; 82140; 82533; 82550; 82553; 83605; 83690; 83735; 83880; 84100; 84443; 84484; 85025; 85379; 85610; 86706; 86803; 87040; 87086; 87340; 87389; 87517; 93005; 93017; 93306; 96361; 96365; 96366; 96367; 96368; 96375; A9500; J0171; J0461; J1100; J1644; J1650; J1815; J2001; J2543; J2785; J2920; J3370; J3475; J3480; J3490; J7050; Q9966

== ENCOUNTER 2019-07-27 17:19 | Emergency (ER) | payer MEDICARE, OTHER ==
--- NOTE | 2019-07-27 18:31 | CT ---
CT BRAIN WITHOUT CONTRAST: 07/27/19 HISTORY: Seizure at home. Hit couch on the face. FINDINGS: Comparison made with exam of 11/21/15. Old lacunar infarctions in the right basal ganglia again seen. No evidence of acute infarct, hemorrha ge, midline shift or abnormal extra-axial fluid collections are noted. The ventricular size is normal and the basilar cisterns patent. The bony calvarium is intact. The visualized paranasal sinuses and mastoid air cells are well aerated. There is a right frontal scalp contusion. IMPRESSION: No evidence of acute intracranial process. POS: MZA
[2019-07-27 18:52] LABS: Anion Gap 13 mmol/L (10-20); BUN (Urea Nitrogen) 7 mg/dL (9.8-20.1); Calc. Creatinine Clearance 0 mL/min (70-130); Calcium 9.4 mg/dL (7.8-10.44); Carbon Dioxide 28 mmol/L (22-29); Chloride 104 mmol/L (98-107); Estimated GFR-MDRD 82; Glucose 102 mg/dL (70-105); Potassium 3.3 mmol/L (3.5-5.1); Sodium 142 mmol/L (136-145)
== END 2019-07-27 19:10 | disposition home or self-care (01) ==
LOC: ERS 17:19
DX: G40.909 Epilepsy, unspecified, not intractable, without status epilepticus (principal); E87.6 Hypokalemia; E11.9 Type 2 diabetes mellitus without complications; I10 Essential (primary) hypertension; F31.9 Bipolar disorder, unspecified; F41.9 Anxiety disorder, unspecified
CPT/HCPCS: 36415; 70450; 80048

== ENCOUNTER 2019-09-23 17:18 | Observation (INO) | payer MEDICARE, MEDICAID ==
[2019-09-23 19:08] LABS: #Basophils 0.1 thou/uL (0.0-0.2); #Eosinphils 0.1 thou/uL (0.0-0.7); #Lymphocytes 1.6 thou/uL (1.20-3.40); #Monocytes 0.4 thou/uL (0.11-0.59); %Basophils 1.3 % (0.0-1.0); %Eosinophils 0.8 % (0.0-10.0); %Lymphocytes 22.6 % (21.0-51.0); %Monocytes 5.6 % (0.0-10.0); %Neutrophils 69.7 % (42.0-75.0); Hemoglobin 12.7 g/dL (12.0-16.0); Mean Corpuscular HGB CONC 32.4 g/dL (32.0-36.0); Mean Corpuscular Hemoglobin 32.7 pg (27.0-31.0); Mean Platelet Volume 7.7 fL (7.4-10.4); Platelet Count 209 thou/uL (130-400); RBC Distribution Width 12.6 % (11.5-14.5); Red Blood Cell (RBC) Count 3.89 mill/uL (4.20-5.40); White Blood Cell (WBC) Count 7.2 thou/uL (4.8-10.8)
[2019-09-23 19:29] LABS: ALT (SGPT) 9 U/L (8-55); AST (SGOT) 16 U/L (5-34); Acetaminophen Less than 6.0 mcg/mL (10.0-30.0); Albumin 3.5 g/dL (3.5-5.0); Alcohol Less than 10 mg/dL (Less than 10); Alkaline Phosphatase 87 U/L (40-110); Anion Gap 13 mmol/L (10-20); BUN (Urea Nitrogen) 4 mg/dL (9.8-20.1); Bilirubin, Total 0.2 mg/dL (0.2-1.2); Calc. Creatinine Clearance 0 mL/min (70-130); Carbon Dioxide 28 mmol/L (22-29); Chloride 98 mmol/L (98-107); Estimated GFR-MDRD Greater than 90; Globulin 3.1 g/dL (2.4-3.5); Glucose 157 mg/dL (70-105); Protein, Total 6.6 g/dL (6.0-8.3); Salicylate Less than 8.0 mg/dL (15.0-30.0); Sodium 136 mmol/L (136-145)
[2019-09-23 19:32] LABS: Potassium 2.8 mmol/L (3.5-5.1)
[2019-09-23 20:06] LABS: Bilirubin Negative (Negative); Blood, Urine Negative (Negative); Glucose, Urine (Dipstick) Negative (Negative); Leukocyte Negative (Negative); Nitrite Negative (Negative); Protein, Urine (Dipstick) Negative (Neg-Trace); Urobilinogen 0.2 mg/dL (Less than 2)
[2019-09-23 20:07] LABS: Clarity Clear (Clear)
[2019-09-23 20:10] LABS: RBC/HPF 0-3 HPF (0-3); Squamous Epithelial 0-3 HPF (0-3); WBC/HPF 0-3 HPF (0-3)
[2019-09-23 20:21] LABS: Bacteria/HPF 1+ HPF (None Seen)
[2019-09-23 20:22] LABS: Amphetamine Not Detected (NotDetected); Barbiturates Screen Detected (NotDetected); Benzodiazepine Screen Not Detected (NotDetected); Cocaine Metabolite Screen Not Detected (NotDetected); Medtox Control Line Valid? VALID (VALID); Medtox Reader # READER 1; Methadone Not Detected (NotDetected); Methamphetamine Not Detected (NotDetected); Opiate Screen Not Detected (NotDetected); Oxycodone Screen Not Detected (NotDetected); Phencyclidine (PCP) Not Detected (NotDetected); THC/Cannabinoid Screen Not Detected (NotDetected); Tricyclic Screen Not Detected (NotDetected)
[2019-09-23] MEDS ORDERED: Potassium Chloride 40 MEQ in Sodium Chloride 0.9% 250 ML 250 ML IVPB SCH (20:30)
[2019-09-23] MEDS ORDERED: Potassium Chloride 20 MEQ TAB ONE (22:34)
[2019-09-23 23:19] VITALS: BMI 36.0
--- NOTE | 2019-09-24 01:56 | HP ---
PRIMARY CARE PHYSICIAN: Dr. Tish Roach. CHIEF COMPLAINT: The patient says that her mind is messing with her. HISTORY OF PRESENT ILLNESS: The history of present illness is very limited as the patient does not have very much recollection as to what happened earlier. When I asked why she is in the hospital, she says "I don't know" and that "also my mind is messing with me." She says that she has a history of seizure disorder and she says she got very upset this afternoon and she went on the porch and started smoking. She says she was smoking some cigars and "this other stuff" but she really could not tell me what the other stuff was. Then, she says that she went to get a broom to sweep the porch and the next thing she knows is that she woke up here in the hospital. She says that friends and family say that she had a seizure. She says that she denies having any fevers or chills, notes a runny nose. She says that she has been taking her medications; however, she does not know her dose. She says that her daughter fixes up her medicines for her and she says she takes them, so she believes that she has been taking her seizure medicine. She denies any headaches. No dizziness. She also has a history of schizophrenia and says that she has been hearing voices occasionally, but says that "she has medications that take care of that" and says that she has not had any homicidal or suicidal ideation. Otherwise, the patient says she feels fine and she actually would like to go home today. REVIEW OF SYSTEMS: All systems are reviewed and are negative except for that mentioned in the history of present illness. PAST MEDICAL HISTORY: Significant for hypertension, schizophrenia, chronic hepatitis B, diabetes mellitus, obesity, empty sella syndrome, seizure disorder , and urinary incontinence. PAST SURGICAL HISTORY: She has had a . ALLERGIES: NO KNOWN DRUG ALLERGIES. SOCIAL HISTORY: She smokes two packs a day for the last 40 years. Denies any alcohol use or drug use. She is single and has 2 children. FAMILY HISTORY: Significant for schizophrenia. MEDICATIONS: Include, 1. Dilantin 300 mg at bedtime. 2. Lisinopril/hydrochlorothiazide 20/12.5 one tablet twice a day. 3. Ibuprofen 800 mg q.8 as needed. 4. Pravastatin 20 mg daily. 5. Multivitamin once a day. 6. Olanzapine 10 mg daily. 7. Folic acid 1 mg daily. 8. Trihexyphenidyl 2 mg once a day. 9. Metformin 500 mg daily. 10. Prolixin 2.5 mg injection. PHYSICAL EXAMINATION: GENERAL: She is alert and oriented and no acute distress. She is well developed and well nourished. VITAL SIGNS: Blood pressure was 134/74, heart rate 82, respiratory rate of 18, and temperature is 97.7. HEENT: Pupils are equal, round, and reactive. Extraocular muscles are intact. Her sclerae are anicteric. Throat, no erythema. No exudates. NECK: No adenopathy. No bruits. LUNGS: Clear to auscultation. There is no wheezing, no rales, no rhonchi. CARDIOVASCULAR: Normal S1 and S2. There is no S3 or S4. No murmurs, clicks, or rubs. ABDOMEN: Obese. It is soft, nontender, and nondistended. Positive for bowel sounds. No rebound or guarding. EXTREMITIES: No clubbing, cyanosis, or edema. NEUROLOGIC: The exam is nonfocal. SKIN AND INTEGUMENT: No skin changes. No rash. LABORATORY DATA: CBC; white blood cell count is 7.2, hemoglobin 12.7, hematocrit is 39.2, and platelet count is 209. Sodium 136, potassium 2.8, chloride is 98, CO2 is 28, BUN of 4, creatinine 0.74, and glucose is 157. Urinalysis is negative. Urine drug screen is significant for barbiturates. Alcohol level was less than 10. ASSESSMENT: 1. This is a pleasant 58-year-old female, who presents to the emergency room after suffering a seizure. We will need to check her Dilantin level and see if it was subtherapeutic. Get a CT scan of the brain to rule out significant trauma such as a bleed or a large mass lesion, which is unlikely given the recent negative CT scan and if her Dilantin level is low, we may need to make an adjustment. 2. Hypokalemia. It is unclear why her potassium level is low. She denies any significant nausea or vomiting, they could be the hydrochlorothiazide portion of the lisinopril. This will be replaced and we will also check a magnesium level. 3. Schizophrenia. This appears to be more or less stable. She says that her last visit with her psychiatrist was just a few days ago and we will continue her home medications. 4. Diabetes mellitus. Restart her home medicines as well as sliding scale insulin and further recommendations to follow. Job ID: [id number] MTDD
[2019-09-24] MEDS ORDERED: Acetaminophen 325 MG TAB PO PRN (05:20)
[2019-09-24] MEDS ORDERED: Lorazepam 2 MG/ML VIAL SLOW IVP PRN (05:20)
[2019-09-24] MEDS ORDERED: Dextrose 50% Abboject 50 ML SYRINGE SLOW IVP PRN (05:20)
[2019-09-24] MEDS ORDERED: Dextrose 5% in Water 1,000 ML IV PRN (05:20)
[2019-09-24] MEDS ORDERED: HumaLOG 300 UNITS/3 ML VIAL SC PRN ×2 (05:20)
[2019-09-24 06:56] LABS: Dilantin 3.4 ug/mL (10.0-20.0); Magnesium 1.7 mg/dL (1.6-2.6)
[2019-09-24] MEDS ORDERED: Acetaminophen 325 MG TAB ONE (07:30)
--- NOTE | 2019-09-24 08:02 | CT ---
CT OF THE BRAIN WITHOUT CONTRAST: Date: 09/24/2019 INDICATION: History of seizures. COMPARISON: Prior exam dated 07/27/2019. FINDINGS: No acute infarct, hemorrhage, or hydrocephalus is evident. Remote lacunar infarct involving the right caudate is stable appearing. Mild to moderate chronic small vessel white matter ischemic change is s imilar appearing. No midline shift is evident. Mastoid air cells and visualized paranasal sinuses are clear. IMPRESSION: 1. No acute intracranial abnormality. 2. Stable chronic ischemic change as above. POS: OFF
[2019-09-24 08:52] LABS: Anion Gap 12 mmol/L (10-20); BUN (Urea Nitrogen) 5 mg/dL (9.8-20.1); Calc. Creatinine Clearance 140 mL/min (70-130); Calcium 9.1 mg/dL (7.8-10.44); Carbon Dioxide 28 mmol/L (22-29); Chloride 103 mmol/L (98-107); Estimated GFR-MDRD Greater than 90; Glucose 112 mg/dL (70-105); Potassium 3.5 mmol/L (3.5-5.1); Sodium 139 mmol/L (136-145)
[2019-09-24] MEDS: Famotidine 20 MG TAB PO SCH ×2 (09:33→09:55)
[2019-09-24] MEDS ORDERED: Famotidine 20 MG TAB ONE (09:50)
[2019-09-24] MEDS ORDERED: Nicotine 14 MG PATCH TD SCH (11:00)
[2019-09-24 12:09] VITALS: BP 144/87; TEMP 98.1
[2019-09-24] MEDS ORDERED: Simvastatin 5 MG TAB PO SCH (21:00)
--- NOTE | 2019-09-25 14:03 | DIS ---
DATE OF ADMISSION: 09/23/2019 DATE OF DISCHARGE: 09/24/2019 DISCHARGE DIAGNOSES: 1. Seizure. 2. Schizophrenia. 3. Diabetes. 4. Obesity. 5. Hypokalemia. HOSPITAL COURSE: The patient is a 58-year-old female, who initially presented to the hospital stating that her "mind was messing with her." At this time, she had a seizure in the ER. She was postictal. Her phenytoin level at this time was significantly low, it was 4.4. She was given mg of phenytoin and also p.o. Neurology was consulted. The patient, however, did not want to stay until she was seen by Neurology. Neurology recommendation was to increase her phenytoin to 400 mg at bedtime and also follow up as an outpatient. During the hospital stay, she was also noted to have a low potassium of 2.8, that was replaced. The patient was very adamant about being discharged. At this time, she was discharged home. I did emphasize the fact that she needs to take her medications and she agreed with it and stated that she will do so. She again was given recommendations to follow up as an outpatient with her primary and also with Neurology. PHYSICAL EXAMINATION: VITAL SIGNS: Temperature 98.1, pulse 77, respirations 20, 97% on room air, blood pressure 144/87. GENERAL: She is awake, alert, and oriented x3. Does not appear in distress. CV: S1, S2 present. No murmurs, rubs, or gallops. Again, she is walking around, ambulating, stating that she wants to be discharged. MEDICATIONS: Her home medications are as of the followin. Phenytoin extended release 400 mg daily, this is per recommendations from Neurology. 2. Pravastatin 20 mg at bedtime. 3. Metformin 500 mg daily. 4. Prolixin mg IM. 5. Zyprexa 10 mg at bedtime. 6. Lisinopril 1 tab b.i.d. 7. Multivitamin 1 p.o. daily. 8. Folic acid 1 daily. 9. Artane 2 mg p.o. daily. Job ID: [id number]
== END 2019-09-24 15:40 | disposition home or self-care (01) ==
LOC: ERS 17:18 → ERHOLD 21:23 → 2SW 23:46
PROVIDERS: ADMIT Emergency Medicine; ATTEND Emergency Medicine
DX: G40.909 Epilepsy, unspecified, not intractable, without status epilepticus (principal); F20.9 Schizophrenia, unspecified; E11.9 Type 2 diabetes mellitus without complications; E87.6 Hypokalemia; I10 Essential (primary) hypertension; B18.1 Chronic viral hepatitis B without delta-agent; E23.6 Other disorders of pituitary gland; F17.210 Nicotine dependence, cigarettes, uncomplicated; F41.9 Anxiety disorder, unspecified; F31.9 Bipolar disorder, unspecified; E66.9 Obesity, unspecified; Z68.36 Body mass index [BMI] 36.0-36.9, adult; Z79.84 Long term (current) use of oral hypoglycemic drugs; Z79.899 Other long term (current) drug therapy
CPT/HCPCS: 70450; 80048; 80053; 80185 ×2; 80306; 80307; 81003; 83735; 84146; 85025; 96365; 96366; 99285; G0378 ×3; 36415; J3480; J7050; Q2009

== ENCOUNTER 2020-02-16 11:46 | Emergency (ER) | payer MEDICARE, MEDICAID ==
[2020-02-16 14:01] LABS: #Eosinphils 0.1 thou/uL (0.0-0.7); #Lymphocytes 1.9 thou/uL (1.20-3.40); #Monocytes 0.4 thou/uL (0.11-0.59); %Basophils 0.3 % (0.0-1.0); %Eosinophils 0.6 % (0.0-10.0); %Lymphocytes 19.9 % (21.0-51.0); %Neutrophils 75.1 % (42.0-75.0); Hemoglobin 14.9 g/dL (12.0-16.0); Mean Corpuscular HGB CONC 33.3 g/dL (32.0-36.0); Mean Corpuscular Hemoglobin 32.8 pg (27.0-31.0); Mean Corpuscular Volume 98.5 fL (78.0-98.0); Mean Platelet Volume 7.8 fL (7.4-10.4); Platelet Count 254 thou/uL (130-400); RBC Distribution Width 12.2 % (11.5-14.5); Red Blood Cell (RBC) Count 4.53 mill/uL (4.20-5.40); White Blood Cell (WBC) Count 9.3 thou/uL (4.8-10.8)
[2020-02-16 14:18] LABS: Bilirubin Negative (Negative); Blood, Urine Negative (Negative); Clarity Clear (Clear); Glucose, Urine (Dipstick) Normal (Negative); Ketone, Urine Negative (Negative); Leukocyte Negative Leu/uL (Negative); Nitrite Negative (Negative); Protein, Urine (Dipstick) Negative (Neg-Trace); Specific Gravity, Urine 1.003 (1.002-1.036); Urobilinogen Normal mg/dL (Less than 2)
[2020-02-16 14:22] LABS: ALT (SGPT) 14 U/L (8-55); AST (SGOT) 15 U/L (5-34); Alkaline Phosphatase 122 U/L (40-110); Anion Gap 13 mmol/L (10-20); BUN (Urea Nitrogen) 4 mg/dL (9.8-20.1); Bilirubin, Total 0.2 mg/dL (0.2-1.2); Calc. Creatinine Clearance 0 mL/min (70-130); Calcium 9.7 mg/dL (7.8-10.44); Carbon Dioxide 25 mmol/L (22-29); Chloride 103 mmol/L (98-107); Estimated GFR-MDRD 80; Globulin 3.5 g/dL (2.4-3.5); Glucose 120 mg/dL (70-105); Potassium 3.7 mmol/L (3.5-5.1); Protein, Total 7.5 g/dL (6.0-8.3); Sodium 137 mmol/L (136-145)
== END 2020-02-16 16:34 | disposition home or self-care (01) ==
LOC: ERS 11:46
DX: G40.909 Epilepsy, unspecified, not intractable, without status epilepticus (principal); E11.9 Type 2 diabetes mellitus without complications; I10 Essential (primary) hypertension; F41.9 Anxiety disorder, unspecified; F31.9 Bipolar disorder, unspecified; Z79.84 Long term (current) use of oral hypoglycemic drugs; Z79.899 Other long term (current) drug therapy
CPT/HCPCS: 36415; 80053; 80185; 81003; 84146; 85025; 87086; 93005

== ENCOUNTER 2020-04-26 09:08 | Emergency (ER) | payer MEDICARE, MEDICAID | END 2020-04-26 10:46 | disposition home or self-care (01) | LOC: ERS 09:08 | DX: Z03.89 Encounter for observation for other suspected diseases and conditions ruled out (principal); G40.909 Epilepsy, unspecified, not intractable, without status epilepticus; E11.9 Type 2 diabetes mellitus without complications; I11.0 Hypertensive heart disease with heart failure; I50.9 Heart failure, unspecified; F31.9 Bipolar disorder, unspecified; F41.9 Anxiety disorder, unspecified; F20.9 Schizophrenia, unspecified; F17.290 Nicotine dependence, other tobacco product, uncomplicated; Z79.899 Other long term (current) drug therapy; Z79.84 Long term (current) use of oral hypoglycemic drugs | CPT/HCPCS: 99283 ==

== ENCOUNTER 2020-09-22 22:50 | Emergency (ER) | payer MEDICARE, OTHER ==
--- NOTE | 2020-09-22 23:45 | CT ---
CT BRAIN WITH AND WITHOUT IV CONTRAST: HISTORY: Seizure COMPARISON: 09/24/2019 FINDINGS: Old lacunar infarction involving the right caudate is stable. No evidence of infarct, hemorrhage, mas s, midline shift or abnormal extra axial fluid collections is seen. The ventricular size is normal and the basilar cisterns are patent. No abnormal postcontrast enhancement is seen. The bony calvarium is intact. The visualized paranasal sinuses are well-aerated. IMPRESSION: No CT evidence of acute intracranial process.
[2020-09-23 00:24] LABS: #Basophils 0.1 thou/uL (0.0-0.2); #Eosinphils 0.1 thou/uL (0.0-0.7); #Lymphocytes 2.1 thou/uL (1.20-3.40); #Monocytes 0.4 thou/uL (0.11-0.59); #Neutrophils 6.9 thou/uL (1.40-6.50); %Basophils 0.6 % (0.0-1.0); %Eosinophils 0.8 % (0.0-10.0); %Monocytes 4.5 % (0.0-10.0); %Neutrophils 72.1 % (42.0-75.0); Hemoglobin 14.8 g/dL (12.0-16.0); Mean Corpuscular HGB CONC 33.8 g/dL (32.0-36.0); Mean Corpuscular Hemoglobin 32.6 pg (27.0-31.0); Mean Corpuscular Volume 96.5 fL (78.0-98.0); Mean Platelet Volume 8.3 fL (7.4-10.4); Platelet Count 212 thou/uL (130-400); RBC Distribution Width 11.8 % (11.5-14.5); Red Blood Cell (RBC) Count 4.54 mill/uL (4.20-5.40); White Blood Cell (WBC) Count 9.5 thou/uL (4.8-10.8)
[2020-09-23 00:49] LABS: ALT (SGPT) 11 U/L (8-55); AST (SGOT) 13 U/L (5-34); Albumin 3.8 g/dL (3.5-5.0); Alkaline Phosphatase 113 U/L (40-110); Anion Gap 16 mmol/L (10-20); BUN (Urea Nitrogen) 8 mg/dL (9.8-20.1); Bilirubin, Total 0.3 mg/dL (0.2-1.2); Calc. Creatinine Clearance 0 mL/min (70-130); Calcium 8.8 mg/dL (7.8-10.44); Carbon Dioxide 26 mmol/L (22-29); Chloride 99 mmol/L (98-107); Globulin 2.8 g/dL (2.4-3.5); Glucose 180 mg/dL (70-105); Potassium 3.1 mmol/L (3.5-5.1); Protein, Total 6.6 g/dL (6.0-8.3); Sodium 138 mmol/L (136-145)
[2020-09-23] MEDS ORDERED: Furosemide 40 MG TAB ONE (00:54)
[2020-09-23] MEDS ORDERED: Fosphenytoin Sodium 500 mg/10 ml Vial ONE (00:54)
== END 2020-09-23 03:18 | disposition home or self-care (01) ==
LOC: ERS 22:50
DX: G40.909 Epilepsy, unspecified, not intractable, without status epilepticus (principal); I11.0 Hypertensive heart disease with heart failure; I50.9 Heart failure, unspecified; E11.9 Type 2 diabetes mellitus without complications; F17.210 Nicotine dependence, cigarettes, uncomplicated; Z79.84 Long term (current) use of oral hypoglycemic drugs; Z79.899 Other long term (current) drug therapy
CPT/HCPCS: 36415; 70450; 80053; 80185; 84484; 85025; 96365; Q2009

== ENCOUNTER 2021-12-19 21:28 | Emergency (ER) | payer MEDICARE, OTHER ==
[2021-12-19 22:20] LABS: #Basophils 0.1 thou/uL (0.0-0.2); #Eosinphils 0.1 thou/uL (0.0-0.7); #Lymphocytes 3.7 thou/uL (1.20-3.40); #Monocytes 0.4 thou/uL (0.11-0.59); #Neutrophils 5.1 thou/uL (1.40-6.50); %Basophils 0.7 % (0.0-1.0); %Eosinophils 1.6 % (0.0-10.0); %Lymphocytes 39.1 % (21.0-51.0); %Monocytes 3.9 % (0.0-10.0); %Neutrophils 54.6 % (42.0-75.0); Hemoglobin 13.5 g/dL (12.0-16.0); Mean Corpuscular HGB CONC 32.3 g/dL (32.0-36.0); Mean Corpuscular Hemoglobin 32.1 pg (27.0-31.0); Mean Corpuscular Volume 99.4 fL (78.0-98.0); Mean Platelet Volume 7.5 fL (7.4-10.4); Platelet Count 228 thou/uL (130-400); Red Blood Cell (RBC) Count 4.19 mill/uL (4.20-5.40); White Blood Cell (WBC) Count 9.3 thou/uL (4.8-10.8)
[2021-12-19 22:37] LABS: ALT (SGPT) Less than 7 U/L (8-55); AST (SGOT) 11 U/L (5-34); Albumin 3.6 g/dL (3.4-4.8); Alkaline Phosphatase 117 U/L (40-110); Anion Gap 14 mmol/L (10-20); BUN (Urea Nitrogen) 5 mg/dL (9.8-20.1); Bilirubin, Total 0.2 mg/dL (0.2-1.2); Calc. Creatinine Clearance 0 mL/min (70-130); Calcium 8.4 mg/dL (7.8-10.44); Carbon Dioxide 24 mmol/L (23-31); Chloride 101 mmol/L (98-107); Globulin 2.9 g/dL (2.4-3.5); Glucose 211 mg/dL (80-115); Protein, Total 6.5 g/dL (5.8-8.1); Sodium 136 mmol/L (136-145)
[2021-12-19] MEDS ORDERED: levETIRAcetam 500 MG/5 ML VIAL ONE (22:45)
[2021-12-20] MEDS ORDERED: Potassium Chloride 20 MEQ TAB ONE (00:06)
== END 2021-12-19 23:51 | disposition home or self-care (01) ==
LOC: ERS 21:28
DX: G40.909 Epilepsy, unspecified, not intractable, without status epilepticus (principal); E87.6 Hypokalemia; Z79.899 Other long term (current) drug therapy; Z79.84 Long term (current) use of oral hypoglycemic drugs; I11.0 Hypertensive heart disease with heart failure; I50.9 Heart failure, unspecified; E11.9 Type 2 diabetes mellitus without complications; F17.210 Nicotine dependence, cigarettes, uncomplicated
CPT/HCPCS: 70450; 80053; 80185; 84484; 85025; 93005; 96374; J1953

== ENCOUNTER 2021-12-24 20:24 | Emergency (ER) | payer OTHER ==
[2021-12-24 21:04] LABS: #Eosinphils 0.2 thou/uL (0.0-0.7); #Lymphocytes 3.5 thou/uL (1.20-3.40); #Monocytes 0.5 thou/uL (0.11-0.59); #Neutrophils 5.8 thou/uL (1.40-6.50); %Basophils 0.2 % (0.0-1.0); %Eosinophils 1.7 % (0.0-10.0); %Monocytes 5.4 % (0.0-10.0); %Neutrophils 57.8 % (42.0-75.0); Hemoglobin 13.5 g/dL (12.0-16.0); Mean Corpuscular HGB CONC 33.5 g/dL (32.0-36.0); Mean Corpuscular Hemoglobin 32.2 pg (27.0-31.0); Mean Corpuscular Volume 96.2 fL (78.0-98.0); Mean Platelet Volume 7.8 fL (7.4-10.4); Platelet Count 210 thou/uL (130-400); Red Blood Cell (RBC) Count 4.18 mill/uL (4.20-5.40)
[2021-12-24 21:17] LABS: Anion Gap 19 mmol/L (10-20); BUN (Urea Nitrogen) 4 mg/dL (9.8-20.1); Calc. Creatinine Clearance 0 mL/min (70-130); Calcium 8.6 mg/dL (7.8-10.44); Carbon Dioxide 20 mmol/L (23-31); Chloride 105 mmol/L (98-107); Glucose 118 mg/dL (80-115); Potassium 3.2 mmol/L (3.5-5.1); Sodium 141 mmol/L (136-145)
[2021-12-24] MEDS ORDERED: Potassium Bicarbonate/Cit Ac 25 MEQ TAB ONE (22:03)
== END 2021-12-24 22:10 | disposition home or self-care (01) ==
LOC: ERS 20:24
DX: G40.909 Epilepsy, unspecified, not intractable, without status epilepticus (principal); E87.6 Hypokalemia; E11.9 Type 2 diabetes mellitus without complications; I11.0 Hypertensive heart disease with heart failure; I50.9 Heart failure, unspecified; F17.210 Nicotine dependence, cigarettes, uncomplicated; Z79.899 Other long term (current) drug therapy; Z79.84 Long term (current) use of oral hypoglycemic drugs
CPT/HCPCS: 36415; 80048; 85025; 99284

== ENCOUNTER 2022-09-03 10:01 | Emergency (ER) | payer OTHER ==
[2022-09-03] MEDS ORDERED: Ketorolac Tromethamine 30 MG/ML VIAL ONE (11:30)
[2022-09-03] MEDS ORDERED: Acetaminophen 500 MG TAB ONE (11:30)
== END 2022-09-03 12:07 | disposition short-term general hospital (02) ==
LOC: ERS 10:01
DX: M17.11 Unilateral primary osteoarthritis, right knee (principal); E11.9 Type 2 diabetes mellitus without complications; I10 Essential (primary) hypertension; F17.210 Nicotine dependence, cigarettes, uncomplicated; Z79.82 Long term (current) use of aspirin
CPT/HCPCS: 96372; J1885

== ENCOUNTER 2024-01-10 14:52 | Emergency (ER) | payer OTHER | END 2024-01-10 16:02 | disposition home or self-care (01) | LOC: ERS 14:52 | DX: M17.11 Unilateral primary osteoarthritis, right knee (principal); E11.9 Type 2 diabetes mellitus without complications; I10 Essential (primary) hypertension; F17.210 Nicotine dependence, cigarettes, uncomplicated | CPT/HCPCS: 99283 ==

== ENCOUNTER 2024-09-20 15:49 | Emergency (ER) | payer OTHER ==
[2024-09-20] MEDS ORDERED: Phenytoin Extended Release 100 MG CAP ONE (18:07)
[2024-09-20] MEDS ORDERED: Phenytoin 50 MG Chewable Tablet PO SCH (18:15)
[2024-09-20 19:16] LABS: ALT (SGPT) 9 U/L (Less than 34); AST (SGOT) 27 U/L (11-34); Albumin 3.7 g/dL (3.1-4.5); Alkaline Phosphatase 112 U/L (40-110); Anion Gap 22 mmol/L (10-20); BUN (Urea Nitrogen) 13 mg/dL (9.8-20.1); Bilirubin, Total 0.2 mg/dL (0.3-1.2); CK (CPK) 100 U/L (29-168); Calc. Creatinine Clearance 0 mL/min (70-130); Calcium 8.9 mg/dL (7.8-10.44); Carbon Dioxide 18 mmol/L (23-31); Chloride 95 mmol/L (98-107); Estimated GFR 85; Globulin 3.7 g/dL (2.4-3.5); Glucose 138 mg/dL (80-115); Potassium 3.6 mmol/L (3.5-5.1); Protein, Total 7.4 g/dL (5.8-8.1); Sodium 131 mmol/L (136-145)
[2024-09-20 19:18] LABS: Acetaminophen Less than 10 mcg/mL (Less than 10); Alcohol Less than 10.0 mg/dL (Less than 10); Lipase 14 U/L (8-78); Magnesium 1.8 mg/dL (1.6-2.6); Salicylate Less than 8.0 mg/dL (Less than 8.0)
[2024-09-20 19:24] LABS: #Basophils 0.08 10x3/uL (0.0-0.2); %Basophils 0.7 % (0.0-1.0); %Eosinophils 1.4 % (0.0-10.0); %Lymphocytes 34.4 % (21.0-51.0); %Monocytes 6.3 % (0.0-10.0); %Neutrophils 56.9 % (42.0-75.0); Hematocrit 40.4 % (36.0-47.0); Hemoglobin 13.3 g/dL (12.0-16.0); Mean Corpuscular HGB CONC 32.9 g/dL (32.0-36.0); Mean Corpuscular Hemoglobin 30.9 pg (27.0-31.0); Mean Corpuscular Volume 93.7 fL (78.0-98.0); Mean Platelet Volume 10.1 fL (7.4-10.4); Platelet Count 237 10x3/uL (130-400); RBC Distribution Width 12.3 % (11.5-14.5); Red Blood Cell (RBC) Count 4.31 mill/uL (4.20-5.40)
[2024-09-20 19:46] LABS: Dilantin 2.8 ug/mL (10.0-20.0)
[2024-09-20] MEDS ORDERED: Ibuprofen 200 MG TAB ONE (20:32)
== END 2024-09-20 20:49 | disposition home or self-care (01) ==
LOC: ERS 15:49
DX: G40.909 Epilepsy, unspecified, not intractable, without status epilepticus (principal); E11.9 Type 2 diabetes mellitus without complications; I10 Essential (primary) hypertension; F17.210 Nicotine dependence, cigarettes, uncomplicated
CPT/HCPCS: 36415; 80053; 80185; 80307; 82550; 83605; 83690; 83735; 84146; 84443; 85025; 93005; 94760